=== PATIENT | female | born 1940 | race Caucasian/White ===

== ENCOUNTER 2019-04-26 07:26 | Inpatient (IN) ==
[2019-04-26 08:10] LABS: WBC 21.56 X1000 (4.8-10.8)
[2019-04-26 08:13] LABS: BASO# 0.04 X1000 (0.0-0.2); BASO% 0.2 % (0.0-0.8); EOS# 0.03 X1000 (0.0-0.7); EOS% 0.1 % (0.0-10.0); HEMATOCRIT 31.6 % (37.0-47.0); HEMOGLOBIN 9.5 g/dL (12.0-16.0); IMM GRAN# 0.05 X1000 (0.0-0.04); IMM GRAN% 0.2 % (0.0-0.5); LYMPH% 5.1 % (20.5-51.1); MCH 24.6 PG (27-31); MCHC 30.1 g/dL (33-37); MCV 81.9 FL (81-99); MONO# 1.63 X1000 (0.11-0.59); MONO% 7.6 % (1.7-9.3); MPV 11.1 FL (7.4-10.4); NEUT# 18.71 X1000 (1.4-6.5); NEUT% 86.8 % (42.2-75.2); PLT 422 X1000 (130-400); RBC 3.86 XMIL (4.2-5.4); RDW 13.2 % (11.5-14.5)
[2019-04-26 08:25] LABS: ALB/GLOB RATIO 1.8; ALBUMIN 4.6 g/dL (3.5-5.0); CALCIUM 10.3 mg/dL (8.8-10.2); CREATININE 1.4 mg/dL (0.5-0.9); POTASSIUM 4.8 mmol/L (3.5-5.1); TOTAL BILIRUBIN 0.37 mg/dL (0.20-1.00); TOTAL PROTEIN 7.2 g/dL (6.3-8.3)
--- NOTE | 2019-04-26 09:35 | PROVIDER DOCUMENTATION ---
HPI-Abdominal Pain/GI Problem - General Chief Complaint: Abdominal Pain Stated Complaint: ABD PAIN Time Seen by Provider: 04/26/19 08:58 Source: patient Allergies/Adverse Reactions: Patient Allergies Allergy/AdvReac Type Severity Reaction Status Date / Time aspirin Allergy Intermediate chest pain Verified 04/08/19 03:12 codeine [Codeine] Allergy Intermediate depression Verified 04/08/19 03:12 Penicillins Allergy Mild ITCHING Verified 04/08/19 03:12 baclofen Allergy Unknown Verified 04/08/19 03:12 meloxicam [From Mobic] Allergy Unknown Verified 04/08/19 03:12 tapentadol HCl * Allergy Unknown Verified 04/08/19 03:12 [From Nucynta] acetaminophen [From Lortab] AdvReac Intermediate Makes me Verified 04/08/19 03:12 feel weird Home Medications: Home Medication List Medication Instructions Recorded Confirmed Last Taken Type Furosemide [Lasix] 1 cap PO DAILY 06/09/17 04/08/19 06/21/17 09:00 History Potassium Chloride E.r. [Klor-Con] 1 cap PO DAILY 06/09/17 04/08/19 06/21/17 09:00 History Pravastatin Sodium 1 tab PO HS 06/09/17 04/08/19 1 Day Ago History ~06/08/17 Amlodipine Besylate/Benazepril 1 each PO DAILY 06/21/17 04/08/19 06/21/17 09:00 History [Amlodipine-Benazepril 5-40 mg] Cyclobenzaprine [Flexeril] 1 cap PO HS 06/21/17 04/08/19 06/20/17 22:00 History Fexofenadine [Kanika] 180 mg PO HS 06/21/17 04/08/19 06/20/17 22:00 History Multivitamin with Minerals 1 cap PO HS 06/21/17 04/08/19 06/20/17 22:00 History [Multiple Vitamin] Sertraline [Zoloft] 50 mg PO DAILY 06/21/17 04/08/19 06/21/17 09:00 History Sucralfate 1 cap PO BID 06/21/17 04/08/19 06/21/17 09:00 History Tramadol HCl [Ultram] 1 cap PO PRN PRN 06/21/17 04/08/19 Unknown History Clopidogrel [Plavix] 1 tab PO DAILY 04/08/19 04/08/19 04/07/19 History Hydrocortisone [Proctozone-Hc] 30 gm RC 4XDAY #1 cream..g. 04/08/19 Unknown Rx - History of Present Illness-ABD Nature of Presenting Problems: Patient is a 78 yowf who complains of LLQ pain that began early this morning. Also c/o constipation- states she has attempted to have a BM 3 times this morning and was unable to, saw bright red blood in the toilet after these attempts. Denies n/v/d, fever, or any other complaints. Review of Systems - Adult - REVIEW OF SYSTEMS - ADULT Constitutional: reports: no symptoms reported Eyes: reports: no symptoms reported Ears, Nose, Mouth & Throat: reports: no symptoms reported Cardiovascular: reports: no symptoms reported Respiratory: reports: no symptoms reported Gastrointestinal: reports: see HPI Genitourinary: reports: no symptoms reported Musculoskeletal: reports: no symptoms reported Integumentary: reports: no symptoms reported Neurological: reports: no symptoms reported Psychiatric: reports: no symptoms reported Endocrine: reports: no symptoms reported Hematologic/Lymphatic: reports: no symptoms reported Allergic/Immunologic: reports: no symptoms reported All Other Systems: Reviewed and Negative Past History - Adult - PAST MEDICAL HISTORY-ADULT Review of Records: reports: Old Records Reviewed, Nursing Assessment Review, Medications Reviewed, Social history reviewed & non-contributory. Major Childhood Illnesses: reports: denies history Cardiovascular: reports: HTN, hyperlipidemia, other (history of blood clots) Respiratory: reports: other (seasonal allergies) Gastrointestinal: reports: denies history Obstetrical/Gynecological: reports: denies history Genitourinary: reports: denies history Musculoskeletal: reports: arthritis, chronic pain, intervertebral disc disease Neurological: reports: TIA, other (vertigo) Psychiatric: reports: anxiety, depression Endocrine/Immune: reports: denies history Other Conditions: reports: denies history - PRIOR SURGERIES/PROCEDURES Surgical/Procedure History: reports: colonoscopy, hysterectomy, other (lumpectomy) - PRIOR HOSPITALIZATIONS Prior Hospitalizations: reports: for other non-related - IMMUNIZATION STATUS Childhood Immunizations: See Nurse Assessment Flu Vaccine: See Nurse Assessment - FAMILY HISTORY Family History: reviewed, not pertinent - SOCIAL HISTORY Smoking: non-smoker Physical Exam-General - PHYSICAL EXAM-ADULT Initial Vital Signs Reviewed: Yes - CONSTITUTIONAL General Appearance: alert, no apparent distress. negative: lethargic, slow to respond - EYES Eyes: PERRL/EOMI, pink conjunctivae - HEAD, EARS, NOSE, MOUTH & THROAT HENMT: normocephalic/atraumatic, moist mucous membranes - NECK Neck: full range of motion, supple, normal inspection - RESPIRATORY Respiratory: chest non-tender, lungs clear, normal breath sounds, no pleuratic chest pain, no respiratory distress, no accessory muscle use - CARDIOVASCULAR Cardiovascular: regular rate, rhythm, no gallop, no murmur - GASTROINTESTINAL (ABDOMEN) Abdominal Exam: normal bowel sounds, soft, tenderness (Diffuse- more in LLQ). negative: distended, guarding, rigid, rebound - MUSCULOSKELETAL Back Exam: normal inspection Extremity: normal range of motion, non-tender, normal inspection - SKIN Integumentary: normal color, warm/dry. negative: cyanosis, diaphoresis, ja undice, mottled, pallor - NEUROLOGIC Neurologic: grossly normal, no motor/sensory deficits - PSYCHIATRIC Psych/Mental Status: normal mood/affect, normal thought content, normal thought process, oriented x 3 Progress - PLAN OF CARE/RESULTS Progress/Plan/Lab Results: Vital Signs - 8 hr 04/26/19 07:34 Temperature 97.8 F Pulse Rate 78 Respiratory Rate 16 Blood Pressure 135/59 O2 Sat by Pulse Oximetry 98 Laboratory Results - last 24 hr 04/26/19 04/26/19 07:48 07:48 WBC 21.56 H RBC 3.86 L Hgb 9.5 L Hct 31.6 L MCV 81.9 MCH 24.6 L MCHC 30.1 L RDW Std Deviation 13.2 Plt Count 422 H MPV 11.1 H Immature Gran % (Auto) 0.2 Neut % (Auto) 86.8 H Lymph % (Auto) 5.1 L Yancey % (Auto) 7.6 Eos % (Auto) 0.1 Baso % (Auto) 0.2 Immature Gran # (Auto) 0.05 H Neut # (Auto) 18.71 H Lymph # (Auto) 1.10 L Yancey # (Auto) 1.63 H Eos # (Auto) 0.03 Baso # (Auto) 0.04 Sodium 138 Potassium 4.8 Chloride 101 Carbon Dioxide 20 L Anion Gap 17 BUN 38 H Creatinine 1.4 H Estimated GFR/1.73 m2 36 BUN/Creatinine Ratio 27 Glucose 152 H Calculated Osmolality 288 Calcium 10.3 H Total Bilirubin 0.37 AST 18 ALT 14 Alkaline Phosphatase 90 Total Protein 7.2 Albumin 4.6 Globulin 2.6 Albumin/Globulin Ratio 1.8 Amylase 152 Lipase 59 Orders Category Date Time Status Saline Loc DIRECTED Care 04/26/19 07:51 Active NPO Diet 04/26/19 07:51 Active AMYLASE [CHEM] Stat Lab 04/26/19 07:48 Completed CBC WITH ELECTRONIC DIFF [HEME] Stat Lab 04/26/19 07:48 Completed COMPREHENSIVE METABOLIC PANEL [CHEM] Stat Lab 04/26/19 07:48 Completed LIPASE [CHEM] Stat Lab 04/26/19 07:48 Completed URINALYSIS W/POSS RFLX CULT [URINALYSIS] Stat Lab 04/26/19 07:51 Uncollected Result Diagrams: 04/26/19 07:48 04/26/19 07:48 - REASSESSMENT Reassessment #1 Time Reassessed: 10:00 Status: other (CT scanner down, pt to be sent to [facility] to have CT scan.) Reassessment #2 Time Reassessed: 14:00 Status: other (Waiting on CT scan to dispo. Pain controlled at this time.) Reassessment #3 Time Reassessed: 17:44 Status: other (Admitting HPS paged.) Reassessment #4 Time Reassessed: 18:15 Status: other (Pain controlled. Pt in agreement with admission plan.) - CT/MRI 1 CT Study: Abdomen, Pelvis ([facility] - [address] [place] [address] [address] [address] [facility] - [address] [id number] Department of Imaging Patient: LUIS CHEN Date: 04/26/19MR#: [id number] : 1940DM [id number] Age/Sex: 78/FRoom/Bed: Loc: ED Ordering Physician: Janae King Family Physician: Michele Lyons MD Reason for Procedure: LLQ pain Signed EXAM: CT ABDOMEN/PELVIS W/O CONTRAST HISTORY: LLQ pain TECHNIQUE: CT abdomen and pelvis without oral or intravenous contrast COMPARISON: None. FINDINGS: There is a moderate to large hiatal hernia. No calcified gallstones or adjacent inflammation. No focal hepatic normality identified on this noncontrasted exam. No splenomegaly. There are scattered splenic granuloma. There is fatty infiltration of the pancreas. No peripancreatic inflammatory changes. Normal adrenal glands. No renal stones. No hydronephrosis. No aortic aneurysm. Prominent atherosclerosis. There is prominent stool in the proximal and mid colon. There is a small amount stool the more distal colon. There are scattered colonic diverticula. There is wall thickening to the descending colon and proximal sigmoid colon with mild adjacent inflammation. No abscess. Normal appendix. The urinary bladder is overly distended. The uterus has been removed. No pelvic mass. Mild scoliosis. There are degenerative spine changes. IMPRESSION: 1.Distal colitis 2.Constipation 3.Colonic diverticulosis 4.Atherosclerosis 5.Hysterectomy 6.Hiatal hernia This exam was performed using automated exposure control, adjustment of mA or kV according to patient size, and/or use of iterative reconstruction technique. Electronically signed by Silver Preciado 04/26/2019 5:36 PM 04/26/19 173 Interpreting Physician: Silver Preciado MD Dictated Date/Time: 04/26/19 173 cc: Janae King; Michele Lyons MD) - CONSULTS/PCP/HOSPITALIST Notification #1 *Consult/PCP/Hospitalist*: Dr. Garsia Time Discussed: 18:29 Reason/Comments: admission- colitis, abdominal pain Consult Disposition: Admit ( to place admit orders) Departure - Departure Date of Disposition Decision: 04/26/19 Time of Disposition Decision: 18:28 DIAGNOSIS: Colitis Abdominal pain Qualifiers: Abdominal location: left lower quadrant Qualified Code(s): R10.32 - Left lower quadrant pain Disposition: ADMITTED INPATIENT 09 Certified Medical Emergency: Emergent Condition: Stable Referrals and Follow-Ups: Michele Lyons MD [Primary Care Provider] - - Critical Care Note This patient required my direct & personal management of CC.: No Attestation - Physician/ SILVERIO Attestation Patient care was provided by Advanced Practice Provider:: Yes Advanced Practice Provider:: Janae King Advanced Practice Provider documentation review:: The Mid-level provider documentation, treatment plan and medical decision making was reviewed by the physician who agrees with all treatment and medical decision making by the MLP. The physician spent face to face time with patient:: No Advanced Practice Provider documentation review:: Supervising physician onsite and consulted in the evaluation and care of this patient. The physician did not have a face to face encounter with the patient.
[2019-04-26] MEDS ORDERED: MORPHINE IV ONE ×2 (09:41→13:22)
[2019-04-26] MEDS ORDERED: NS 1,000 ML IV ONE ×2 (09:41→19:39)
[2019-04-26] MEDS ORDERED: ZOFRAN IV ONE ×2 (09:41→13:22)
[2019-04-26 12:45] LABS: URINE SOURCE CLEAN CATCH
[2019-04-26 12:48] LABS: BILIRUBIN URINE NEGATIVE (NEGATIVE); BLOOD URINE NEGATIVE (NEGATIVE); COLOR YELLOW; GLUCOSE URINE NEGATIVE (NEGATIVE); KETONE URINE NEGATIVE (NEGATIVE); LEUKOCYTES URINE NEGATIVE (NEGATIVE); NITRITE URINE NEGATIVE (NEGATIVE); PROTEIN URINE NEGATIVE (NEGATIVE); SP GRAVITY URINE 1.016; TURBIDITY URINE CLEAR (CLEAR); UROBILINOGEN URINE NORMAL (NORMAL)
[2019-04-26] MEDS ORDERED: MORPHINE IM ONE (12:59)
[2019-04-26] MEDS ORDERED: ZOFRAN IM ONE (13:00)
[2019-04-26 13:06] LABS: UR EPITHELIAL CELLS <10 /HPF (<10); URINE BACTERIA NEGATIVE /HPF; URINE RBC <10 /HPF (<10); URINE WBC <10 /HPF (<10)
--- NOTE | 2019-04-26 17:38 | Diag Imaging Result Doc PS360 ---
EXAM: CT ABDOMEN/PELVIS W/O CONTRAST HISTORY: LLQ pain TECHNIQUE: CT abdomen and pelvis without oral or intravenous contrast COMPARISON: None. FINDINGS: There is a moderate to large hiatal hernia. No calcified gallstones or adjacent inflammation. No focal hepatic normality identified on this noncontrasted exam. No splenomegaly. There are scattered splenic granuloma. There is fatty infiltration of the pancreas. No peripancreatic inflammatory changes. Normal adrenal glands. No renal stones. No hydronephrosis. No aortic aneurysm. Prominent atherosclerosis. There is prominent stool in the proximal and mid colon. There is a small amount stool the more distal colon. There are scattered colonic diverticula. There is wall thickening to the descending colon and proximal sigmoid colon with mild adjacent inflammation. No abscess. Normal appendix. The urinary bladder is overly distended. The uterus has been removed. No pelvic mass. Mild scoliosis. There are degenerative spine changes. IMPRESSION: 1.Distal colitis 2.Constipation 3.Colonic diverticulosis 4.Atherosclerosis 5.Hysterectomy 6.Hiatal hernia This exam was performed using automated exposure control, adjustment of mA or kV according to patient size, and/or use of iterative reconstruction technique. Electronically signed by Silver Preciado 04/26/2019 5:36 PM
[2019-04-26] MEDS ORDERED: CIPRO 400 MG/D5W 400 MG/200 ML IVPB IV ONE (17:42)
[2019-04-26] MEDS ORDERED: MORPHINE IV PRN (19:39)
[2019-04-26] MEDS ORDERED: ZOFRAN IV PRN (19:39)
[2019-04-26] MEDS: FLAGYL 500 MG/NS 500 MG/100 ML IVPB IV SCH (20:00)
[2019-04-26] MEDS: CIPRO 400 MG/D5W 400 MG/200 ML IVPB IV SCH (21:24)
[2019-04-27 00:49] LABS: URINE SOURCE CLEAN CATCH
[2019-04-27 00:52] LABS: BILIRUBIN URINE NEGATIVE (NEGATIVE); BLOOD URINE SMALL (NEGATIVE); COLOR YELLOW; GLUCOSE URINE NEGATIVE (NEGATIVE); KETONE URINE NEGATIVE (NEGATIVE); LEUKOCYTES URINE NEGATIVE (NEGATIVE); NITRITE URINE NEGATIVE (NEGATIVE); PROTEIN URINE NEGATIVE (NEGATIVE); SP GRAVITY URINE 1.016; TURBIDITY URINE CLEAR (CLEAR); UROBILINOGEN URINE NORMAL (NORMAL)
[2019-04-27 00:54] LABS: UR EPITHELIAL CELLS <10 /HPF (<10); URINE BACTERIA NEGATIVE /HPF; URINE RBC 20-40 /HPF (<10); URINE WBC <10 /HPF (<10)
[2019-04-27 01:05] LABS: URINE CASTS NONE SEEN; URINE CRYSTALS NONE SEEN; URINE SMALL ROUND CELLS NONE SEEN; URINE YEAST NONE SEEN
--- NOTE | 2019-04-27 04:58 | HISTORY AND PHYSICAL ---
PRIMARY CARE PROVIDER: Michele Lyons MD. DATE AND TIME: 04/26/2019 at 2015. CHIEF COMPLAINT: Abdominal pain. HISTORY OF PRESENT ILLNESS: Ms Hoang is a 78-year-old female who presented to the ER this evening with complaints of abdominal pain that began earlier in the morning on 04/26/2019. She reports that it was in the left lower quadrant and did radiate to the mid lower quadrant. She stated the pain was crampy in nature. At home, nothing would really relieve it or make it worse. She denies any nausea, vomiting, or diarrhea, though states that she has been constipated. She has attempted to have a bowel movement 3 times this morning but was unable to do so. After attempting to have bowel movements, she reports that she saw bright red blood in the toilet. Though, she did not see bright red blood until after the attempts. The patient's daughter states that she has had this bright red blood in the past, Dr. Lyons was aware and they have been watching it. She denies any fever, body aches, or chills. She denies any past or present history of having diverticulitis or colitis. The patient does report some occasional dizziness, though does have a history of this and does take meclizine as needed. She also reports that she does have a occasional dry cough, states this has been present, this is not new. The patient does take a medication of benazepril. She denies any chest pain, though does state that she does have shortness of breath, this is not at rest. States he only has shortness of breath with exertion when she walks for long periods, for example, from her house to her mailbox and back. She states normally she ambulates with a walker/chair combination so she can sit and take rests. She states this has been ongoing, this is not acutely new. She does have chronic swelling of bilateral lower extremities, this is not worsened. Her family actually states that the swelling in her extremities looks better at this time. She denies any dysuria or urinary frequency. Upon evaluation in the ER, she was noted to have leukocytosis with a white blood cell count of 21,550. She is anemic with a hemoglobin of 9.5, hematocrit 31.6. She does have acute kidney disease. It does appear that she has a baseline creatinine of 1.1 to 1.3. Her renal function is just slightly above her baseline with a creatinine of 1.4 at this time. Urinalysis did not show any signs of infection. Given her abdominal pain, leukocytosis, they did perform a CT abdomen and pelvis, which did show distal colitis and constipation. She has been placed on antibiotics of ciprofloxacin and Flagyl. Since being given some pain medication in the ER, the patient is not reporting any pain at this time. She was resting comfortably in the ER stretcher. She was alert and oriented, and able to answer questions appropriately. She will be placed inpatient for admission. REVIEW OF SYSTEMS: A 14-point review of systems was conducted with the patient and all were negative, except for pertinent positives mentioned above in HPI. PAST MEDICAL HISTORY: 1. History of a cerebrovascular accident, for which she did have some transient left-sided weakness, though she states this has resolved. 2. History of basal cell skin cancer which was removed from her top lip. 3. Hypertension. 4. Chronic kidney disease. 5. Degenerative disk disease in her lower back. 6. Chronic back pain. 7. Arthritis. 8. Vertigo. 9. Anxiety. 10. Depression. 11. Chronic dizziness. 12. Chronic allergies. 13. Hyperlipidemia. 14. Chronic muscle aches. PAST SURGICAL HISTORY: 1. Basal cell skin cancer removed from her top lip. 2. Hysterectomy. 3. Left breast lumpectomy. 4. Bladder surgery. SOCIAL HISTORY: The patient is . She does live at home alone, though does have family close by that checks on her very regularly. She does use the ambulatory assistance of a walker/chair combination. There is no known history of tobacco, alcohol, or illicit drug use. FAMILY HISTORY: Positive for her mother having history of stroke. Her father had a history of heart disease. ALLERGIES: Patient has allergies to codeine, penicillins, baclofen, meloxicam, Nucynta, [place] and she is aspirin intolerant as well. HOME MEDICATIONS: 1. Norvasc 5 mg p.o. daily. 2. Benazepril 40 mg p.o. daily. 3. Plavix 75 mg p.o. daily. 4. Flexeril 10 mg p.o. at bedtime. 5. Voltaren 1% gel 1 application daily. 6. Lasix 40 mg capsule p.o. daily. 7. Prevacid 30 mg p.o. daily. 8. Antivert 12.5 mg p.o. as directed p.r.n. dizziness. 9. Multivitamin 1 capsule p.o. at bedtime. 10. Klor-Con 1 capsule p.o. daily. 11. Pravastatin 10 mg p.o. at bedtime. 12. Zoloft 50 mg p.o. daily. 13. Sucralfate 1 g p.o. b.i.d. DIAGNOSTIC DATA: White blood cell count is 21,560, hemoglobin 9.5, hematocrit 31.6, platelet count is 422,000. Sodium 138, potassium 4.8, chloride 101, serum bicarbonate is 20, BUN 38, creatinine 1.4 with a GFR of 36. Glucose 152, calcium 10.3. Liver function tests are within normal limits. Amylase 152, lipase 59. Urinalysis was obtained via clean catch, was negative for glucose, ketones, blood, nitrites, leukocytes, white blood cells, or bacteria. CT of the abdomen and pelvis showed distal colitis, constipation, colonic diverticulosis, atherosclerosis, hysterectomy, hiatal hernia. Please see full CT report for all detailed findings. PHYSICAL EXAMINATION: VITAL SIGNS: Temperature 98.4 degrees, heart rate 83, respirations 16, blood pressure is 114/60, oxygen saturation 91% on room air. The patient's oxygen saturation upon initial arrival to the ER was 98% on room air, though after receiving morphine, it did slightly did though, she has been placed on nasal cannula since and she is at 99% to 100%. This is likely secondary to the morphine administration. GENERAL: Ms. Urena is a very pleasant, 78-year-old female. She is resting in the ER stretcher, she was in no acute distress. She was alert and oriented, able to answer questions appropriately. HEENT: Head is atraumatic, normocephalic. Pupils are equal, round, reactive to light, were 3 mm bilaterally and brisk. Oral mucosa is moist. Oropharynx is clear. NECK: Supple. Trachea midline. CARDIOVASCULAR: Patient has S1, S2 present. No murmurs, gallops, rubs appreciated with a regular rate and rhythm. PULMONARY: Patient has symmetrical chest expansion bilaterally. Lung sounds clear to auscultation in bilateral full craig. ABDOMEN: Soft, does not appear to be distended though the patient has had a slightly protuberant abdomen noted. She was nontender upon palpation. Bowel sounds were present in all 4 quadrants. EXTREMITIES: No cyanosis noted. The patient does appear to have some swelling noted to bilateral lower extremities. There is only trace edema, though she is able to move all extremities. Radial pulses are 2+ bilaterally. Pedal pulses are 1+ bilaterally. Capillary refill is less than 3 seconds. INTEGUMENTARY: Patient's skin is pink, warm and dry. NEUROLOGICAL: The patient is alert and oriented to person, place, time and situation. She is able to move all extremities. There are no focal neurological deficits noted. ASSESSMENT AND PLAN: 1. Colitis. At this time, we placed the patient on a clear liquid diet. We have obtained blood cultures. We will place her on IV antibiotic coverage with Cipro and Flagyl. We are providing some gentle intravenous hydration as well. We also implemented the patient on a bowel regimen at this time, she had constipation noted on her CT. Given her reported recent rectal bleeding, I not going to perform any suppositories or enemas at this time, I will wait for Gastroenterology to evaluate her. I will go ahead and implement Colace and MiraLAX. We have placed a consult with Dr. Adrian with Gastroenterology. We will await their evaluation and further recommendations for management. 2. Leukocytosis. This is likely secondary to her colitis. The patient reports a dry nonproductive cough that she has had for a while, it is not of new onset. Otherwise, lung sounds were clear. Urinalysis did not show any signs of infection. She has not reported any fever, body aches, or chills. We will continue to monitor. 3. Acute on chronic kidney disease. The patient has had a very slight elevation in her creatinine, though we will continue to monitor this closely. We will avoid nephrotoxic medications and renally dose medicines as necessary. We are providing gentle intravenous hydration. 4. Constipation. We will continue with bowel regimen, as mentioned above, with Colace and MiraLAX. 5. Rectal bleeding and anemia. The patient reports that she has had this off and on and Dr. Lyons is aware and has been monitoring it. Though she did have an episode of this prior to arrival to the ER after trying to have some bowel movements. She is anemic with a hemoglobin of 9 and hematocrit of 31. We have ordered an anemia profile. We will await these results and continue to follow. Though she is hemodynamically stable. 6. Deep vein thrombosis prophylaxis provided with sequential compression devices. The patient has been placed on the medical floor with telemetry. She will have vital signs q.4 hours. We will do strict intake and output, incentive spirometry. Further orders and recommendations pending hospital course, diagnostic studies, and physician evaluation. Dictated by MIGUEL ANGEL Pang for Jared Thompson MD cc: Jared Thompson MD MTDD
[2019-04-27 07:06] LABS: BASO# 0.04 X1000 (0.0-0.2); BASO% 0.4 % (0.0-0.8); EOS# 0.14 X1000 (0.0-0.7); EOS% 1.5 % (0.0-10.0); HEMATOCRIT 26.1 % (37.0-47.0); HEMOGLOBIN 7.3 g/dL (12.0-16.0); IMM GRAN# 0.02 X1000 (0.0-0.04); IMM GRAN% 0.2 % (0.0-0.5); LYMPH# 1.99 X1000 (1.2-3.4); LYMPH% 21.4 % (20.5-51.1); MCH 23.7 PG (27-31); MCV 84.7 FL (81-99); MONO% 12.9 % (1.7-9.3); NEUT# 5.92 X1000 (1.4-6.5); NEUT% 63.6 % (42.2-75.2); PLT 310 X1000 (130-400); RBC 3.08 XMIL (4.2-5.4); RDW 13.2 % (11.5-14.5); WBC 9.31 X1000 (4.8-10.8)
[2019-04-27 07:16] LABS: INR 1.2; PROTIME 15.4 Seconds (11.0-16.0); PTT 33.8 Seconds (22.3-41.8)
[2019-04-27 07:24] LABS: ALB/GLOB RATIO 2.1; ALBUMIN 3.6 g/dL (3.5-5.0); CALCIUM 9.2 mg/dL (8.8-10.2); CREATININE 1.1 mg/dL (0.5-0.9); MAGNESIUM 2.6 mg/dL (1.5-2.7); POTASSIUM 4.2 mmol/L (3.5-5.1); TOTAL BILIRUBIN 0.29 mg/dL (0.20-1.00); TOTAL PROTEIN 5.3 g/dL (6.3-8.3)
[2019-04-27 07:27] LABS: ANISOCYTOSIS 1+; EOS 2 % (1-10); HYPOCHROM 2+; LYMPHS 11 % (21-51); MONO 4 % (1-9); SEGS 83 % (42-75)
[2019-04-27 07:41] LABS: FERRITIN 10 ng/mL (13-150)
[2019-04-27] MEDS: COLACE PO SCH ×2 (07:59→23:20)
[2019-04-27] MEDS: CIPRO 400 MG/D5W 400 MG/200 ML IVPB IV SCH (08:03)
[2019-04-27] MEDS ORDERED: MIRALAX PO SCH (09:00)
[2019-04-27] MEDS: FLAGYL 500 MG/NS 500 MG/100 ML IVPB IV SCH ×2 (10:54→23:18)
--- NOTE | 2019-04-27 12:44 | PROGRESS NOTE ---
DATE: 04/27/2019 SUBJECTIVE: The patient resting comfortably in bed. Not in any obvious distress. OBJECTIVE: Vital signs: Temperature is 98.4 degrees, pulse 71, respiratory rate 16, blood pressure 123/42, oxygen saturation is 93%. HEENT: Atraumatic, normocephalic. Cardiovascular system: S1, S2. Respiratory system: Has evidence of good air entry bilaterally. Abdomen: Soft, nontender. No masses felt. Extremities: No evidence of edema. Central nervous system: No obvious focal deficit noted. LABORATORY DATA: WBC is 9.31, hematocrit is 26.1 with a platelet count of 310,000. Sodium is 144, potassium 4.2, chloride is 111, bicarb is 22, BUN 19, creatinine is 1.1. ASSESSMENT AND PLAN: 1. Acute colitis. Maintain patient on clear liquids. Continue antibiotics. The patient is current on Cipro as well as Flagyl. We will consult with the GI team. The patient also has rectal bleed. 2. Acute kidney injury. Renal function improving on IV hydration. Continue to follow up on renal function. Avoid nephrotoxic agents. 3. Anemia. Check iron studies including B12 and folate level. Follow up on hemoglobin and hematocrit and transfuse packed red blood cells as needed. 4. Deep vein thrombosis prophylaxis. SCD. cc: Cole Alexis MD
--- NOTE | 2019-04-27 13:27 | GASTROENTEROLOGY CONSULTATION ---
DATE: 04/27/2019 REASON FOR CONSULTATION: GI bleed. HISTORY OF PRESENT ILLNESS: Ms. Urena is a 78-year-old female who presented to the ER yesterday with abdominal pain in the lower quadrant and radiating the upper quadrant, she also reported noticing blood in her stools. She described her stomach pain as crampy and aching. On a scale of 1 to 10, she rated it as 10/10. The patient has denied any nausea or vomiting, but she did mention that she had a little diarrhea. She mentioned having occasional constipation. Her daughter was at the bedside, and she said that a month back she had gone to [facility] with the same problem. The daughter said that they had done a bunch of tests, and they did not find anything specific. The daughter also mentioned that the patient has got hemorrhoids and that she is on Plavix. She has a history of stroke, and does have some left-sided weakness which is getting better. The patient has denied any other symptoms of fever, chills, or shortness of breath. She does have edema in her lower extremities and patient mentioned that she has cellulitis and gets blisters on her lower extremities. On admission, the abdomen and pelvis CT had shown that she has distal colitis, constipation, colon diverticulosis, arthrosclerosis, hysterectomy, and hiatal hernia. PAST MEDICAL HISTORY: CVA, history of basal cell skin cancer which was remote on the top of her lip, hypertension, chronic kidney disease, degenerative disk disease in the lower back area, chronic pain, arthritis, vertigo, anxiety, depression, cellulitis, dizziness, hypertension, and chronic muscle aches. PAST SURGICAL HISTORY: Basal cell skin cancer removed from the top of the lip, hysterectomy, left breast lumpectomy, and bladder surgery. SOCIAL HISTORY: The patient is a . She lives alone. She uses a walker and a wheelchair for ambulating. Denies any tobacco, alcohol, or illicit drug use. ALLERGIES: To codeine, penicillin, baclofen, meloxicam, Nucyn[place], [place], and aspirin. FAMILY HISTORY: Positive for stroke and heart disease. MEDICATIONS: 1. Lasix 40 mg daily. 2. Potassium chloride 1 capsule daily. 3. Pravastatin 10 mg at bedtime. 4. Flexeril 10 mg at bedtime. 5. Multivitamin 1 capsule at bedtime. 6. Tramadol 50 mg p.r.n. 7. Zoloft 50 mg daily. 8. Carafate 1 g p.o. twice a day. 9. Plavix 75 mg daily. 10. Amlodipine 5 mg daily. 11. Benazepril 40 mg daily. 12. Lansoprazole 30 mg p.o. daily. 13. Meclizine 12.5 mg as needed. 14. Diclofenac 1 application daily. REVIEW OF SYSTEMS: As per HPI. Otherwise, 12 point review of system is negative. PHYSICAL EXAMINATION: Vital Signs: Temperature 98.4 degrees, pulse 71, respirations 16, blood pressure 123/42, oxygen saturation is 93% on 3 L nasal cannula. The patient's weight is 141 pounds. BMI is 25.8 kg/m2. General: She is alert and oriented x3, and in no acute distress. HEENT: Pale conjunctivae. No icterus. PERRL. Neck: Supple. Lungs: Clear to auscultation in the anterior craig. Cardiovascular: Regular rate and rhythm. Abdomen: Soft. Mildly distended. Nontender. Active bowel sounds heard in all 4 quadrants. Extremities: No clubbing. No cyanosis. Generalized edema noted in the lower extremities. Pedal pulses 1+ present bilaterally. Neurologic: She is alert and oriented x3. Nonfocal. Cranial nerves 2-12 grossly intact. LABORATORY DATA: WBCs are 9.31, RBCs 3.08, hemoglobin is 7.3, hematocrit is 26.1, and platelet count is 310,000. Sodium 144, potassium 4.2, chloride 111, carbon dioxide 22, anion gap 11, BUN 19, creatinine is 1.1, glucose 94, calcium 9.2, and magnesium 2.6. Iron 20, TIBC 351, ferritin 10, total bilirubin 0.29, AST 14, ALT 11, and alkaline phos 63. Albumin is 3.6, vitamin B12 864, folate is 26.9. Urinalysis has shown small amount of blood in the urine. The patient's abdomen and pelvis CT has shown she has got distal colitis, constipation, colonic diverticulosis, arthrosclerosis, hysterectomy, and hiatal hernia. IMPRESSION AND PLAN: Colitis Constipation Rectal bleeding Anemia Kidney disease Abdominal pain Leukocytosis h/o Hemorrhoids PLAN: Ms. Urena is a 78 year old female with the history of CVA, basal cell skin cancer and chronic kidney disease, GI has been consulted for her rectal bleeding. The patient is on antibiotics, Flagyl and Cipro. She is on GI prophylaxis Protonix 40 mg daily. For her constipation, she is on Colace and MiraLAX. The patient's hemoglobin today is 7.3 and 26.1. We will continue to monitor her CBCs. We plan to do a colonoscopy tomorrow with Dr Adrian to find out the cause of her bleeding. Discussed the risks, benefits and alternatives of the procedure to patient and family, they acknowledge understanding of the plan of care. Further plan of care will be based on the colonoscopy findings. This plan was discussed with Dr. Hernández. Thank you for your consult. Please call us for any further questions or concerns. Dictated by MIGUEL ANGEL Hannon for Venu Hernández MD cc: Venu Hernández MD I have seen and examined the patient myself and I agree with the above plan of care. I have discussed the above with the patient and all questions were answered. Please call us with any further questions. PURNIMA
[2019-04-27] MEDS ORDERED: GOLYTELY PO ONE (14:00)
[2019-04-27] MEDS: CENTRUM SILVER PO SCH (23:19)
[2019-04-27] MEDS: MIRALAX PO SCH (23:20)
[2019-04-28] MEDS: CIPRO 400 MG/D5W 400 MG/200 ML IVPB IV SCH ×2 (00:34→12:22)
[2019-04-28] MEDS: PROTONIX IV SCH ×2 (02:53→05:28)
[2019-04-28] MEDS: SODIUM CHLORIDE 0.9% INJ SCH (02:53)
[2019-04-28] MEDS: FLAGYL 500 MG/NS 500 MG/100 ML IVPB IV SCH ×3 (06:16→23:11)
[2019-04-28 07:06] LABS: IRON SATURATION 4 %; TIBC 332 ug/dL; TOTAL IRON 12 ug/dL (49-151); UNBOUND IRON 320 ug/dL (112-346)
[2019-04-28 07:14] LABS: FERRITIN 10 ng/mL (13-150)
[2019-04-28 09:02] LABS: AGAP 11; BUN 11 mg/dL (8-22); CALCIUM 9.5 mg/dL (8.8-10.2); CHLORIDE 107 mmol/L (98-107); COSMO 284; CREATININE 0.9 mg/dL (0.5-0.9); ESTIMATED GFR > 60; GLUCOSE 90 mg/dL (70-104); POTASSIUM 4.1 mmol/L (3.5-5.1); SODIUM 143 mmol/L (136-145); TCO2 25 mmol/L (25-35)
[2019-04-28 09:10] LABS: BASO# 0.05 X1000 (0.0-0.2); BASO% 0.6 % (0.0-0.8); EOS# 0.21 X1000 (0.0-0.7); EOS% 2.6 % (0.0-10.0); HEMATOCRIT 22.9 % (37.0-47.0); HEMOGLOBIN 6.5 g/dL (12.0-16.0); LYMPH# 1.65 X1000 (1.2-3.4); LYMPH% 20.1 % (20.5-51.1); MCH 24.1 PG (27-31); MCHC 28.4 g/dL (33-37); MCV 84.8 FL (81-99); MONO# 1.12 X1000 (0.11-0.59); MONO% 13.7 % (1.7-9.3); MPV 11.3 FL (7.4-10.4); NEUT# 5.17 X1000 (1.4-6.5); PLT 270 X1000 (130-400)
[2019-04-28] MEDS ORDERED: DIPRIVAN 1% ONE ×2 (09:31→10:20)
[2019-04-28] MEDS: MIRALAX PO SCH (09:53)
[2019-04-28] MEDS: COLACE PO SCH ×2 (09:53→21:00)
--- NOTE | 2019-04-28 10:40 | ENDOSCOPY OPERATIVE NOTE ---
[facility] ENDOSCOPY OPERATIVE NOTE , COLONOSCOPY PROCEDURE REPORT EXAM DATE: 04/28/2019 PATIENT NAME: Lelia Urena MR #: [id number] BIRTHDATE: 1940 ENDOSCOPIST: Devin Adrian MD STATUS: inpatient ONSITE CASE MANAGER: INDICATIONS: The patient is a 78 yr old female here for a colonoscopy due to hematochezia. PROCEDURE PERFORMED: Colonoscopy, diagnostic MEDICATIONS: Per Anesthesia PREP TYPE: GoLytely
[2019-04-28] MEDS ORDERED: MIRALAX PO PRN (11:10)
[2019-04-28] MEDS ORDERED: NS 500 ML IV SCH (13:00)
--- NOTE | 2019-04-28 15:42 | Diag Imaging Result Doc PS360 ---
EXAM: CHEST-PORTABLE 04/28/2019 HISTORY: cough, left base rales TECHNIQUE: AP portable upright at 1533 COMMENT: There is ill-defined opacity in the lingula and left lower lobe. This was not the case on 01/30/2015. IMPRESSION: Lingular and left lower lobe pneumonia. Advise follow-up until clear. Electronically signed by Franky Perez 04/28/2019 3:40 PM
[2019-04-28] MEDS ORDERED: TYLENOL PO PRN (18:03)
[2019-04-28] MEDS: TYLENOL PO PRN (18:15)
--- NOTE | 2019-04-28 18:38 | PROGRESS NOTE ---
DATE: 04/28/2019 INTERVAL HISTORY: The patient is status post colonoscopy this morning showing only hemorrhoids. No further hematochezia but has had continued drop in blood counts. The patient complaining only of some mild fatigue and being cold. Also complained of a little bit of increased cough, although no dyspnea. REVIEW OF SYSTEMS: Twelve point review of systems negative except as per interval history. LABORATORY DATA: WBC 8.2, hemoglobin 6.5, hematocrit 22.9, platelets 270,000. Sodium 143, potassium 4.1, BUN 11, creatinine 0.9. Iron 12, TIBC 3032, ferritin 10. VITAL SIGNS: T-max 98.5 degrees, pulse 102, blood pressure 98/45, O2 saturation 92% on 2 L by nasal cannula. IMAGING: Chest x-ray with lingular left lower lobe pneumonia. PHYSICAL EXAMINATION: General: No acute distress. Vitals: As above. HEENT: Normocephalic, atraumatic. Moist mucous membranes. Cardiovascular: Slightly tachycardic but regular. No murmurs noted. Pulmonary: Some left base rales, otherwise clear to auscultation bilaterally. Abdomen: Soft, nontender, nondistended. Bowel sounds positive. Extremities: Peripheral pulses intact. No clubbing or cyanosis. Neurologic: Cranial nerves grossly intact. No focal deficits. Psychiatric: Normal mood and affect. Awake, alert, oriented x3. Skin: Some pallor noted. No new rashes. ASSESSMENT AND PLAN: 1. Acute colitis, hematochezia. The patient with no further hematochezia or diarrhea today. Status post colonoscopy this morning showing only hemorrhoids which is likely the source for bleeding. Blood counts still trending down this morning, though. Patient getting 1 unit of blood, which I believe they have had trouble finding a match for so that is pending. The patient is relatively asymptomatic with her anemia other than being cold. No chest pain or chest pain. Denies dyspnea or dizziness. On Flagyl and Cipro initially. Continuing Flagyl. We are changing other antibiotics to Rocephin and azithromycin as below. 2. Pneumonia. Today, patient with complaint of increased cough. Does have some rales on exam. Chest x-ray obtained which does show lingular and left lower lobe pneumonia. Onset of symptoms within 48 hours of admission, so likely community-acquired. Antibiotics with Rocephin and azithromycin started. Obtaining blood cultures. Monitor closely. Low threshold to change to broader spectrum antibiotics if the patient does not improve fairly rapidly. 3. Hypertension, patient hypertensive by history but blood pressure low normal so far in this hospitalization. Holding home Norvasc and benazepril. The patient does report some chronic cough with benazepril, so may change to ARB on discharge. 4. Hyperlipidemia. Continue on statin. 5. Acute kidney injury. The patient's creatinine 1.4 on admission down to 0.9 today. Continue to monitor.
[2019-04-28] MEDS: ROCEPHIN 1 GM in NS 50 ML IV SCH (20:59)
[2019-04-28] MEDS: CENTRUM SILVER PO SCH (21:00)
[2019-04-28] MEDS: PERIDEX MT SCH (21:01)
[2019-04-28] MEDS: ANUSOL-HC SUPP PR SCH (21:01)
[2019-04-28] MEDS: ZITHROMAX 500 MG/NS 500 MG/250 ML IVPB IV SCH (22:00)
[2019-04-29 01:35] LABS: HEMATOCRIT 28.1 % (37.0-47.0); HEMOGLOBIN 8.3 g/dL (12.0-16.0)
[2019-04-29] MEDS: PROTONIX IV SCH (02:13)
[2019-04-29] MEDS: SODIUM CHLORIDE 0.9% INJ SCH (02:14)
[2019-04-29] MEDS: FLAGYL 500 MG/NS 500 MG/100 ML IVPB IV SCH ×3 (05:22→22:05)
[2019-04-29] MEDS: TESSALON PO PRN ×3 (05:26→21:01)
--- NOTE | 2019-04-29 07:11 | Diag Imaging Result Doc PS360 ---
EXAM: CHEST-PORTABLE 04/29/2019 HISTORY: dyspnea TECHNIQUE: AP portable at 0604 COMMENT: There is interstitial opacity throughout both lungs with denser alveolar opacification in the left perihilar region including the lingula and lower lobe. The interstitial pulmonary edema has worsened since 04/28/2019 otherwise are has been no significant change. IMPRESSION: Pulmonary edema. Left lower lobe and lingular pneumonia. Electronically signed by Franky Perez 04/29/2019 7:09 AM
[2019-04-29 07:18] LABS: BASO# 0.03 X1000 (0.0-0.2); BASO% 0.2 % (0.0-0.8); EOS# 0.04 X1000 (0.0-0.7); EOS% 0.3 % (0.0-10.0); HEMATOCRIT 28.9 % (37.0-47.0); HEMOGLOBIN 8.4 g/dL (12.0-16.0); IMM GRAN# 0.03 X1000 (0.0-0.04); IMM GRAN% 0.2 % (0.0-0.5); LYMPH# 1.25 X1000 (1.2-3.4); LYMPH% 8.9 % (20.5-51.1); MCH 24.2 PG (27-31); MCHC 29.1 g/dL (33-37); MCV 83.3 FL (81-99); MONO# 1.39 X1000 (0.11-0.59); MONO% 9.9 % (1.7-9.3); MPV 11.2 FL (7.4-10.4); NEUT# 11.37 X1000 (1.4-6.5); NEUT% 80.5 % (42.2-75.2); PLT 278 X1000 (130-400); RBC 3.47 XMIL (4.2-5.4); RDW 13.8 % (11.5-14.5); WBC 14.11 X1000 (4.8-10.8)
[2019-04-29 07:36] LABS: CALCIUM 9.1 mg/dL (8.8-10.2); CREATININE 1.1 mg/dL (0.5-0.9); POTASSIUM 4.3 mmol/L (3.5-5.1)
[2019-04-29] MEDS: COLACE PO SCH ×2 (09:13→20:07)
[2019-04-29] MEDS: ANUSOL-HC SUPP PR SCH ×2 (09:13→20:08)
[2019-04-29] MEDS: PERIDEX MT SCH ×2 (09:13→20:07)
[2019-04-29] MEDS ORDERED: LASIX IV ONE (09:36)
[2019-04-29] MEDS: ZOLOFT PO SCH (10:21)
--- NOTE | 2019-04-29 17:28 | PROGRESS NOTE ---
DATE: 04/29/2019 SUBJECTIVE: This patient states that she is feeling better, but she does have generalized weakness. She has been coughing, but her cough is dry. X-ray today showed pulmonary edema and pneumonia on the left side. She has been placed on antibiotics. She also had an endoscopy done that did not show any source of infection, but some nonbleeding diverticulosis in the sigmoid colon, small internal hemorrhoids and external hemorrhoids. Hemorrhoids are likely the source of rectal bleeding. There was no blood in the colon or rectum. They have recommended a high-fiber diet, MiraLAX once a day to avoid constipation, Anusol HC suppositories twice a day for 2 weeks. She received 1 unit of PRBC because her hemoglobin dropped to 6.5, now is 8.4, and we will monitor. OBJECTIVE: Vital Signs: Temperature 98 degrees, pulse 99, respiratory rate 20, blood pressure 135/55, oxygen saturation 94% on 2 L of nasal cannula. HEENT: Head normocephalic, no trauma. PERRLA. Neck: Supple. No JVD. No masses. Central trachea. Chest: Clear to auscultation. Some crepitus at the bases with mild rales, left lower lobe rhonchi. Abdomen: Soft, nontender, nondistended. No hepatosplenomegaly. Extremities: No edema, no clubbing, no cyanosis. Neurological: The patient is awake and alert. She is oriented x3. No focal deficits. LABORATORY: WBC 14.1, hemoglobin 8.4, hematocrit 24.9, platelets 278,000. Sodium 141, potassium 4.3, chloride 108, bicarbonate 19, BUN 11, creatinine 1.1, glucose 105, calcium 9.1. ASSESSMENT AND PLAN: 1. Acute colitis/hematochezia. This patient is not having more hematochezia. No diarrhea, actually no bowel movements after colonoscopy. The colonoscopy showed hemorrhoids and some mild diverticulosis with no diverticulitis. The patient received 1 unit of blood. The hemorrhoids are likely the cause of the bleeding. Continue with Flagyl. 2. Pneumonia, left lower lobe. She is still coughing, but nothing is coming up. X-ray showed lingular and left lower lobe pneumonia, as well as some effusion. I will give her a dose of Lasix, and I will continue with ceftriaxone and azithromycin. 3. Hypertension. Her blood pressure has been stable. Yesterday, she had a couple of episodes of low blood pressure. I will still keep on hold the Norvasc and benazepril. 4. Hyperlipidemia. Continue with statins. 5. Acute kidney injury on chronic kidney disease. Resolved. 6. Generalized weakness and physical deconditioning. I have requested Physical Therapy to evaluate this patient. cc: Jorge Daniels MD
[2019-04-29] MEDS: ROCEPHIN 1 GM in NS 50 ML IV SCH (20:06)
[2019-04-29] MEDS: CENTRUM SILVER PO SCH (20:07)
[2019-04-29] MEDS: ZITHROMAX 500 MG/NS 500 MG/250 ML IVPB IV SCH (20:56)
[2019-04-30] MEDS: PROTONIX IV SCH (01:38)
[2019-04-30] MEDS: SODIUM CHLORIDE 0.9% INJ SCH (01:38)
[2019-04-30] MEDS: TESSALON PO PRN ×3 (04:20→20:39)
[2019-04-30] MEDS: FLAGYL 500 MG/NS 500 MG/100 ML IVPB IV SCH ×4 (05:37→23:18)
[2019-04-30 07:10] LABS: BASO# 0.03 X1000 (0.0-0.2); BASO% 0.2 % (0.0-0.8); EOS# 0.07 X1000 (0.0-0.7); EOS% 0.5 % (0.0-10.0); HEMATOCRIT 27.6 % (37.0-47.0); HEMOGLOBIN 8.2 g/dL (12.0-16.0); IMM GRAN# 0.09 X1000 (0.0-0.04); IMM GRAN% 0.6 % (0.0-0.5); LYMPH# 1.66 X1000 (1.2-3.4); LYMPH% 11.2 % (20.5-51.1); MCHC 29.7 g/dL (33-37); MCV 80.9 FL (81-99); MONO# 2.19 X1000 (0.11-0.59); MONO% 14.8 % (1.7-9.3); MPV 10.8 FL (7.4-10.4); NEUT# 10.76 X1000 (1.4-6.5); NEUT% 72.7 % (42.2-75.2); PLT 263 X1000 (130-400); RBC 3.41 XMIL (4.2-5.4); RDW 13.5 % (11.5-14.5)
[2019-04-30] MEDS: TYLENOL PO PRN (07:49)
[2019-04-30] MEDS: ZOLOFT PO SCH ×2 (07:49→13:30)
[2019-04-30 08:14] LABS: CALCIUM 9.4 mg/dL (8.8-10.2); POTASSIUM 3.3 mmol/L (3.5-5.1)
[2019-04-30] MEDS: PERIDEX MT SCH ×2 (09:25→20:39)
[2019-04-30] MEDS: PLAVIX PO SCH (09:25)
[2019-04-30] MEDS: LASIX PO SCH (09:25)
[2019-04-30] MEDS: COLACE PO SCH ×2 (09:25→20:39)
[2019-04-30] MEDS: ANUSOL-HC SUPP PR SCH (09:25)
[2019-04-30] MEDS: ANTIVERT PO PRN ×2 (09:27→20:41)
[2019-04-30] MEDS ORDERED: KLOR-CON PO ONE (14:17)
[2019-04-30] MEDS ORDERED: LASIX IV ONE (15:49)
--- NOTE | 2019-04-30 16:09 | PROGRESS NOTE ---
DATE: 04/30/2019 SUBJECTIVE: As per the patient, she does have generalized weakness and shortness of breath. X- ray showed left lower lobe pneumonia and lingular pneumonia as well, pulmonary edema. She has been getting Lasix and I will give her an extra dose today since she has bilateral crackles. Also I suspect this patient has CHF, so I will order an echocardiogram tomorrow to see how she does. I do not have any echocardiogram reported here. OBJECTIVE: Vital Signs: Temperature 98.4 degrees, pulse 82, respiratory rate 16, blood pressure 127/65, oxygen saturation 93 on 3 L of nasal cannula. HEENT: Head normocephalic. No trauma. PERRLA. Neck: Supple. No JVD. No masses. Central trachea. Chest: Clear to auscultation. Some crepitus at the bases with mild rales. Left lower lobe rhonchi. Abdomen: Soft, nontender, nondistended. No hepatosplenomegaly. Extremities: No edema. No clubbing. No cyanosis. Neurological: The patient is awake and alert. She is oriented x3. No focal deficits. LABORATORY: WBC 14.8, hemoglobin 8.2, hematocrit 27.6, platelet 263,000. Sodium 140, potassium 3.3, chloride 104, bicarbonate 23, BUN 13, creatinine 1, glucose 106, calcium 9.4. ASSESSMENT AND PLAN: 1. Acute colitis/hematochezia. This patient has not been reporting more hematochezia. Actually, no more diarrhea. I will continue with same management. Colonoscopy showed hemorrhoids and some mild diverticulosis with no diverticulitis. The patient received 1 unit of blood. The hemorrhoids are likely the cause of the bleeding. Continue with Flagyl. 2. Pneumonia, left lower lobe and lingula. She is still coughing but nothing is coming up. X- ray showed lingular and left lower lobe pneumonia, as well as some pleural effusion. I gave her a dose of Lasix and I will continue with ceftriaxone and azithromycin. 3. Fluid overload, I suspect this patient has congestive heart failure. I do not have any echocardiogram to corroborate this information. I will ask for one. 4. Hypertension. Her blood pressure has been stable. Two days ago she had a couple episodes of low blood pressure, but it has been more stable. 5. Hyperlipidemia. Continue with statins. 6. Acute kidney injury on chronic kidney disease, resolved. 7. Generalized weakness and physical deconditioning. Physical therapy on board. I will follow their recommendations. 8. She is not on home O2. Pending echocardiogram for tomorrow. cc: Jorge Daniels MD
[2019-04-30] MEDS: ROCEPHIN 1 GM in NS 50 ML IV SCH (20:38)
[2019-04-30] MEDS: ZITHROMAX 500 MG/NS 500 MG/250 ML IVPB IV SCH (20:39)
[2019-04-30] MEDS: CENTRUM SILVER PO SCH (20:39)
[2019-04-30] MEDS ORDERED: NS 500 ML ONE (20:45)
[2019-05-01] MEDS: ANUSOL-HC SUPP PR SCH ×3 (04:23→20:36)
[2019-05-01] MEDS: PROTONIX IV SCH (05:54)
[2019-05-01] MEDS: SODIUM CHLORIDE 0.9% INJ SCH (05:54)
[2019-05-01] MEDS: ZOLOFT PO SCH ×2 (06:00→09:45)
--- NOTE | 2019-05-01 07:35 | Diag Imaging Result Doc PS360 ---
EXAM: CHEST-PORTABLE HISTORY: dyspnea TECHNIQUE: Single view COMPARISON: 04/29/2019 FINDINGS: Poor inspiratory effort. There is pulmonary edema with increased interstitial markings throughout both lungs. There is also basilar atelectasis. Considering the differences in technique and rotation, the markings are quite similar to that of the prior exam. Small left pleural effusion. IMPRESSION: No significant interval change. Electronically signed by Silver Preciado 05/01/2019 7:33 AM
[2019-05-01 07:41] LABS: BASO# 0.03 X1000 (0.0-0.2); BASO% 0.2 % (0.0-0.8); EOS# 0.09 X1000 (0.0-0.7); EOS% 0.7 % (0.0-10.0); HEMATOCRIT 29.2 % (37.0-47.0); HEMOGLOBIN 8.6 g/dL (12.0-16.0); IMM GRAN# 0.09 X1000 (0.0-0.04); IMM GRAN% 0.7 % (0.0-0.5); LYMPH# 1.39 X1000 (1.2-3.4); MCH 23.8 PG (27-31); MCHC 29.5 g/dL (33-37); MCV 80.7 FL (81-99); MONO# 1.81 X1000 (0.11-0.59); MONO% 14.3 % (1.7-9.3); MPV 11.1 FL (7.4-10.4); NEUT# 9.21 X1000 (1.4-6.5); NEUT% 73.1 % (42.2-75.2); PLT 283 X1000 (130-400); RBC 3.62 XMIL (4.2-5.4); RDW 13.7 % (11.5-14.5); WBC 12.62 X1000 (4.8-10.8)
[2019-05-01 07:56] LABS: AGAP 12; BUN 13 mg/dL (8-22); CALCIUM 9.2 mg/dL (8.8-10.2); CHLORIDE 101 mmol/L (98-107); COSMO 277; CREATININE 0.9 mg/dL (0.5-0.9); ESTIMATED GFR > 60; GLUCOSE 94 mg/dL (70-104); POTASSIUM 3.3 mmol/L (3.5-5.1); SODIUM 139 mmol/L (136-145); TCO2 26 mmol/L (25-35)
[2019-05-01] MEDS: FLAGYL 500 MG/NS 500 MG/100 ML IVPB IV SCH (09:44)
[2019-05-01] MEDS: PERIDEX MT SCH ×2 (09:45→20:35)
[2019-05-01] MEDS: LASIX PO SCH (09:45)
[2019-05-01] MEDS: PLAVIX PO SCH (09:45)
[2019-05-01] MEDS: COLACE PO SCH ×2 (09:45→20:35)
[2019-05-01] MEDS: ANTIVERT PO PRN (09:49)
[2019-05-01] MEDS ORDERED: KLOR-CON PO ONE (09:54)
--- NOTE | 2019-05-01 12:37 | GASTROENTEROLOGY PROGRESS NOTE ---
DATE: 04/30/2019 SUBJECTIVE: Ms. Urena is a 78-year-old, female sitting in bed, having her breakfast. Family at the bedside. The patient has denied any nausea, vomiting, or abdominal pain, and she has denied noticing any bleeding episodes. OBJECTIVE: Vital Signs: Temperature 98.2 degrees, pulse is 82, respirations 14, blood pressure 151/61, oxygen saturation 94% on 3 L nasal cannula. The patient's weight is 141 pounds, BMI is 25.8 kg/m2. General: She is alert and oriented x3, and in no acute distress. HEENT: Pale conjunctivae. No icterus. PERRL. Neck: Supple. Lungs: Clear to auscultation in the anterior craig. Cardiovascular: Regular rate and rhythm. Abdomen: Soft, nontender, nondistended. Active bowel sounds heard in all 4 quadrants. Extremities: No clubbing, no cyanosis. Generalized edema in the lower extremities. Pedal pulses 1+ present bilaterally. Neurologic: She is alert and oriented x3. IMAGING AND LABORATORY DATA: WBCs are 12.62, RBC 3.62, hemoglobin is 8.6, hematocrit 29.2, platelet count is 283,000. Sodium 139, potassium 3.3, chloride 101, carbon dioxide 26, anion gap 12, BUN 13, creatinine 0.9, glucose 94, calcium 9.2. Chest x-ray today showed no significant interval change. IMPRESSION AND PLAN: Colitis on imaging. Diverticulosis Hemorrhoids Rectal bleeding Anemia Constipation PLAN: Ms. Urena is a 78-year-old, female with a history of CVA, basal cell skin cancer, and chronic kidney disease. GI is following her for her rectal bleeding. Colonoscopy was done on 04/28/2018, she had mild nonbleeding diverticulosis in the sigmoid colon, small internal hemorrhoids, external hemorrhoids. The cause of her bleeding is likely due to the hemorrhoids. The patient has so far received 1 unit of packed red blood cells. She is currently on GI prophylaxis, Protonix 40 mg IV daily. The patient is on a bowel regimen, MiraLAX 17 grams twice a day as needed, and Colace 100 mg p.o. twice a day. The patient is on antibiotics, Rocephin and Zithromax. She is also receiving Anusol hydrocortisone suppository cream 25 mg twice a day for hemorrhoids. We have discussed with the patient to consume a high- fiber diet, and avoid nuts, corns, and seeds, and to continue with MiraLAX twice a day to avoid constipation. The patient acknowledges understanding of the plan of care. We will continue to monitor the patient, and follow the plan of care per PCP. This plan was discussed with Dr. Hernández. Please call us for any further questions or concerns. Dictated by MIGUEL ANGEL Hannon for Venu Hernández MD cc: Venu Hernández MD I have seen and examined the patient myself and I agree with the above plan of care. I have discussed the above with the patient and all questions were answered. Please call us with any further questions. PURNIMA
[2019-05-01] MEDS: LASIX IV SCH (18:34)
--- NOTE | 2019-05-01 19:47 | PROGRESS NOTE ---
DATE: 05/01/2019 SUBJECTIVE: She is feeling better today. She is still complaining of shortness of breath. Chest x-ray is about the same compared with yesterday. She is still having pulmonary edema, even though I gave her an extra dose of Lasix. I have stopped the p.o. Lasix, and I put her on IV Lasix twice a day today. I suspect this patient has CHF. I ordered an echocardiogram that has been already done, but I do not have the results yet. I will continue with the same management. OBJECTIVE: Vital Signs: Temperature 98.6 degrees, pulse 68, respiratory rate 15, blood pressure 147/62, oxygen saturation 94% on 2 L of nasal cannula. HEENT: Head normocephalic, no trauma, PERRLA. Neck: Supple. No JVD. No masses. Central trachea. Chest: Clear to auscultation. Some crepitus at the bases with mild rales. Left lower lobe rhonchi. Abdomen: Soft, nontender, nondistended. No hepatosplenomegaly. Extremities: No clubbing, no cyanosis. Neurological: The patient is awake, alert. She is oriented x3. No focal deficits. LABORATORY: WBC 12.6, hemoglobin 8.6, hematocrit 29.2, platelets 283,000. Sodium 139, potassium 3.3, chloride 101, bicarbonate 26, BUN 13, creatinine 0.9, glucose 94, calcium 9.2. ASSESSMENT AND PLAN: 1. Acute colitis/hematochezia. No evidence of colitis during the endoscopy. I will stop the Flagyl today. I will continue with the same management recommended by Gastroenterology Department, likely the bleeding was caused by the hemorrhoids. 2. Pneumonia, left lower lobe and lingula. Continue with ceftriaxone and azithromycin. 3. Fluid overload. I suspect this patient has congestive heart failure based on her symptoms. I ordered an echocardiogram that has been already done, but I do not have the results. Continue with Lasix twice a day. 4. Hypertension, stable. 5. Hyperlipidemia. Continue with statins. 6. Acute kidney injury on chronic kidney disease, resolved. 7. Generalized weakness and physical deconditioning. Physical therapy on board. I will follow their recommendations. 8. She is not on home O2. Pending echocardiogram results, I will continue diuresing this patient. cc: Jorge Daniels MD
--- NOTE | 2019-05-01 19:54 | ECHO REPORT ---
ORDER DATE: 05/01/2019 REQUESTING PHYSICIAN: Hospitalist. INDICATION: Chronic kidney disease. Abdominal pain. M-MODE MEASUREMENTS: Left ventricle end diastole: 4.3. Left ventricle end systole: 2.8. Posterior wall: 1.0. Interventricular septum: 1.0. Left atrium: 4.1. Aortic diameter: 2.7. SUMMARY OF 2-DIMENSIONAL IMAGIN. The left ventricular function is normal. Ejection fraction estimated at 65% to 70%. Optison was added to optimize visualization of the endocardium. I do not see wall motion abnormality. The right-sided chambers appear to be normal. 2. The aortic valve looks grossly normal. Color flow mapping unremarkable. 3. The mitral valve shows mild to moderate degree of regurgitation. 4. Pulse wave Doppler of mitral inflow is normal. 5. Tissue Doppler of septal and lateral mitral annulus averages 9 cm. There is no diastolic dysfunction. 6. Pulmonary venous flow appears to be normal. 7. The tricuspid valve shows mild to moderate degree of regurgitation. 8. The pulmonary systolic pressure in this case appears to be elevated, estimated at 80 to 85 mmHg. The pulmonic valve looks grossly normal. Color flow mapping unremarkable. 9. I do not see evidence of pericardial effusion, mass, and no thrombus. SUMMARY: The study shows 1. Normal left ventricular systolic function. 2. Mild degree of sclerosis of the aortic valve without stenosis. 3. Mild to moderate degree of mitral regurgitation with normal diastolic function. 4. Severe pulmonary hypertension estimated at 80 to 85 mmHg. 5. No pericardial effusion, mass, and no thrombus. 6. There is mild enlargement of the left atrium. Clinical correlation is recommended. cc: MD Jorge Ryan MD [facility]
[2019-05-01] MEDS: PRAVACHOL PO SCH (20:35)
[2019-05-01] MEDS: CENTRUM SILVER PO SCH (20:35)
[2019-05-01] MEDS: ROCEPHIN 1 GM in NS 50 ML IV SCH (20:35)
[2019-05-01] MEDS: ZITHROMAX 500 MG/NS 500 MG/250 ML IVPB IV SCH (21:16)
[2019-05-02] MEDS: SODIUM CHLORIDE 0.9% INJ SCH ×2 (05:32→23:31)
[2019-05-02] MEDS: LASIX IV SCH ×2 (05:32→18:56)
[2019-05-02] MEDS: PROTONIX IV SCH ×2 (05:32→23:30)
[2019-05-02 07:48] LABS: BASO# 0.05 X1000 (0.0-0.2); BASO% 0.5 % (0.0-0.8); EOS# 0.21 X1000 (0.0-0.7); EOS% 2.1 % (0.0-10.0); HEMATOCRIT 30.1 % (37.0-47.0); IMM GRAN# 0.06 X1000 (0.0-0.04); IMM GRAN% 0.6 % (0.0-0.5); LYMPH# 1.44 X1000 (1.2-3.4); LYMPH% 14.1 % (20.5-51.1); MCH 24.1 PG (27-31); MCHC 29.9 g/dL (33-37); MCV 80.5 FL (81-99); MONO# 1.56 X1000 (0.11-0.59); MONO% 15.2 % (1.7-9.3); MPV 11.4 FL (7.4-10.4); NEUT# 6.92 X1000 (1.4-6.5); NEUT% 67.5 % (42.2-75.2); PLT 316 X1000 (130-400); RBC 3.74 XMIL (4.2-5.4); RDW 14.1 % (11.5-14.5); WBC 10.24 X1000 (4.8-10.8)
[2019-05-02] MEDS: ANUSOL-HC SUPP PR SCH ×2 (08:08→21:54)
[2019-05-02] MEDS: PLAVIX PO SCH (08:08)
[2019-05-02] MEDS: ZOLOFT PO SCH (08:08)
[2019-05-02] MEDS: ANTIVERT PO PRN (08:08)
[2019-05-02] MEDS: COLACE PO SCH ×2 (08:08→21:53)
[2019-05-02] MEDS: PERIDEX MT SCH ×2 (08:08→21:54)
[2019-05-02 08:22] LABS: POTASSIUM 3.7 mmol/L (3.5-5.1)
--- NOTE | 2019-05-02 14:09 | PROGRESS NOTE ---
DATE: 05/02/2019 SUBJECTIVE: This patient is feeling better. She has severe pulmonary hypertension by echo and likely diastolic dysfunction. No evidence of colitis during the endoscopic procedure. I will remove some more fluid today with Lasix and hopefully I will discharge this patient tomorrow. Today, I believe is the last day with azithromycin. She is still having some shortness of breath, but feeling better. OBJECTIVE: Vital Signs: Temperature 98.6 degrees, pulse 83, respiratory rate 12, blood pressure 131/55, oxygen saturation 95% on 2 L of nasal cannula. HEENT: Head normocephalic, no trauma. PERRLA. Neck: Supple. No JVD. No masses. Central trachea. Chest: Clear to auscultation. Some crepitus at the bases with some rales. Left lower lobe rhonchi. Abdomen: Soft, nontender, nondistended. No hepatosplenomegaly. Extremities: 1+ lower extremity edema. No clubbing. No cyanosis. Neurological: Awake, alert, and oriented x3. No focal deficits. LABORATORY: WBC 10.2, hemoglobin 9, hematocrit 30.1, platelets 316,000. Sodium 142, potassium 3.7, chloride 102, bicarbonate 23, BUN 19, creatinine 1, glucose 97, calcium 10. ASSESSMENT AND PLAN: 1. Hematochezia, likely due to hemorrhoidal bleeding. No evidence of colitis during the colonoscopy. We will continue with same management. I have stopped the Flagyl already. She is not having any gastrointestinal symptoms at this moment. 2. Pneumonia, at the level of the left lower lobe and lingula. Continue with ceftriaxone and azithromycin. I believe this is the last day of azithromycin. 3. Fluid overload in a patient with severe pulmonary hypertension by echo. I will continue with Lasix twice a day today, but probably I will discharge this patient with Lasix once a day. 4. Hypertension, stable. 5. Hyperlipidemia, continue with statins. 6. Acute kidney injury on chronic kidney disease, resolved. 7. Generalized weakness and physical deconditioning. Physical therapy on board. We will follow the recommendations. 8. Hypoxemic respiratory failure due to fluid overload and pneumonia. She is not on home O2 and I will check tomorrow morning if she needs to go home with oxygen. This has been discussed with the daughter and the patient at the bedside. cc: Jorge Daniels MD
[2019-05-02] MEDS: DULCOLAX PR SCH (14:11)
--- NOTE | 2019-05-02 14:56 | GASTROENTEROLOGY PROGRESS NOTE ---
DATE: 05/02/2019 SUBJECTIVE: Ms. Urena is a 78-year-old female sitting in bed and having breakfast. Family at the bedside. The patient has denied any nausea, vomiting, abdominal pain, or any bleeding episodes. OBJECTIVE: Vital signs: Temperature 98.1, pulse is 80, respirations 16, blood pressure 127/57, oxygen saturation 94% on room air. The patient's weight is 141 pounds. BMI is 25.8 kg/m2. General: She is alert, oriented x3, and in no acute distress. HEENT: Pale conjunctivae. No icterus. PERRL. Neck: Supple. Lungs: Clear to auscultation in the anterior craig. Cardiovascular: Regular rate and rhythm. Abdomen: Soft, nontender, nondistended. Active bowel sounds heard in all 4 quadrants. Extremities: No clubbing. No cyanosis. Generalized edema in the lower extremities. Pedal pulses 1+ present bilaterally. Neurologic: The patient is alert, oriented x3. LABS: WBC 10.24, RBC 3.74, Hemoglobin 9.0, Hematocrit 30.1, Sodium 142, Potassium 3.7, chloride 102, CO2 23, anion gap 17, BUN 19, creatinine 1.0, glucose 97, calcium 10.0 IMPRESSIONS AND PLAN: 1. Hemorrhoidal bleeding 2. Diverticulosis. 5. Anemia. 6. Constipation. 7. Pneumonia PLAN: Ms. Urena is a 78-year-old female with a history of CVA, basal cell skin cancer and chronic kidney disease. GI is following her for rectal bleeding. We did a colonoscopy on 04/28/2019 and patient had some nonbleeding diverticulosis in the sigmoid colon, some small internal and external hemorrhoids. The patient's hemoglobin and hematocrit today is 9.0 and 30.1, it has been trending upwards. The patient has denied any bowel movements, she is on a bowel regimen, Dulcolax 10 mg p.r. daily and MiraLAX 17 grams p.o. twice a day. For her hemorrhoids, the patient is receiving Anusol hydrocortisone suppository cream 2.5% twice a day. The patient is on antibiotics, Rocephin and Zithromax. The patient's bleeding is under control. She has not had any further bleeding. The patient has been advised to have a high-fiber diet and continue her bowel regimen to avoid constipation. We will continue to monitor the patient and follow the plan of care per PCP. This plan was discussed with Dr. Adrian. Please call us with any further questions or concerns. Dictated by MIGUEL ANGEL Hannon for Devin Adrian MD Physician Attestation I have seen and examined the patient. I have discussed and reviewed the note by Tamika MICHELLE and agree with findings and plan as documented. No further hemorrhoidal bleeding. Continue supportive care. She reports some mild diffuse abdominal discomfort in setting of constipation. She was started on home miralax today. Anemia stable. She is being treated for pneumonia, which is improving. Will follow with you. MTDD
[2019-05-02] MEDS: ZITHROMAX 500 MG/NS 500 MG/250 ML IVPB IV SCH (21:53)
[2019-05-02] MEDS: PRAVACHOL PO SCH (21:53)
[2019-05-02] MEDS: CENTRUM SILVER PO SCH (21:53)
[2019-05-02] MEDS: ROCEPHIN 1 GM in NS 50 ML IV SCH (23:21)
[2019-05-03] MEDS: LASIX IV SCH (05:18)
[2019-05-03] MEDS: PROTONIX IV SCH (05:19)
[2019-05-03] MEDS: SODIUM CHLORIDE 0.9% INJ SCH (05:25)
[2019-05-03 07:26] LABS: CALCIUM 9.9 mg/dL (8.8-10.2); CREATININE 1.1 mg/dL (0.5-0.9); POTASSIUM 3.7 mmol/L (3.5-5.1)
--- NOTE | 2019-05-03 09:14 | EKG Report ---
Test Performed on : 05/03/2019 08:59:32 AM Test Reason : CP Blood Pressure : / mmHG Vent. Rate : 082 BPM Atrial Rate : 082 BPM P-R Int : 174 ms QRS Dur : 070 ms QT Int : 380 ms P-R-T Axes : 043 -06 017 degrees QTc Int : 443 ms Normal sinus rhythm. Nonspecific ST abnormality Abnormal ECG When compared with ECG of 05-MAR-2017 17:43, ST now depressed in Lateral leads Confirmed by West CASTILLO, Chase Fink ([id number]) on 05/03/2019 10:22:41 AM
--- NOTE | 2019-05-03 10:13 | Diag Imaging Result Doc PS360 ---
EXAM: CHEST-PORTABLE 05/03/2019 HISTORY: CP/SOB TECHNIQUE: AP portable upright at 0856 COMMENT: The inspiration is less optimal than on 05/01/2019, but the pulmonary edema which was present previously has improved considerably. There is a hiatal hernia. There is apparent pleural fluid on the left if not the right. IMPRESSION: Improved pulmonary edema. Electronically signed by Franky Perez 05/03/2019 10:11 AM
--- NOTE | 2019-05-03 10:48 | PROGRESS NOTE ---
DATE: 05/03/2019 SUBJECTIVE: This patient is complaining today of chest pain, pressure like across her chest, radiating to her jaw. I have requested an EKG, and I did not see any changes. I have requested also troponins, a chest x-ray that has been done but pending results, and also I consulted Cardiology Department to evaluate this patient. Vital signs are stable. OBJECTIVE: Vital Signs: Temperature 98.1 degrees, pulse 80, respiratory rate 17, blood pressure 143/59, oxygen saturation 98% on 2 liters of nasal cannula. HEENT: Head is normocephalic, no trauma. PERRLA. Neck: Supple. No JVD. No masses. Central trachea. Chest: Clear to auscultation, some crepitus at the bases. Left lower lobe, mild left lower lobe rhonchi. Abdomen: Soft, nontender, nondistended. No hepatosplenomegaly. Extremities: Trace lower extremity edema. No clubbing. No cyanosis. Neurological: The patient is awake, alert, she is oriented x3. No focal deficits. LABORATORY: Sodium 140, potassium 3.7, chloride 99, bicarbonate 28, BUN 24, creatinine 1.1, glucose 104, calcium 9.9. ASSESSMENT AND PLAN: 1. Chest pain. This is new for this patient. She is complaining of pressure-like chest pain across her chest, radiating to her jaw. She does not have any history of coronary artery disease, but she does have hypertension, hyperlipidemia, and chronic kidney disease. She is a female and a 78-year-old, so I requested an EKG, and I did not see any significant changes. Troponins and chest x-ray are pending at this moment. Cardiology Department has been consulted. 2. Pneumonia, left lower lobe and lingula. Continue with ceftriaxone. She actually completed treatment with azithromycin already, so I will stop it. 3. Fluid overload in a patient with severe pulmonary hypertension by echocardiogram. She has been getting Lasix twice a day. She seems to be euvolemic today, so I will switch it to her home dose of 40 daily starting tomorrow. 4. Hypertension, stable. 5. Hyperlipidemia, continue with statins. 6. Acute kidney injury on chronic kidney disease, resolved. This is her baseline. 7. Generalized weakness and physical deconditioning. Physical therapy on board. 8. Hypoxemic respiratory failure due to fluid overload and pneumonia. She is not on home O2. We will monitor for now. 9. Hematochezia, status post endoscopic exam. No signs of bleeding. No signs of colitis. Likely, the bleeding was coming from the hemorrhoids. cc: Jorge Daniels MD
[2019-05-03] MEDS: ZOLOFT PO SCH (12:04)
[2019-05-03] MEDS: PLAVIX PO SCH (14:26)
[2019-05-03] MEDS: COLACE PO SCH ×2 (14:26→20:56)
[2019-05-03] MEDS: PERIDEX MT SCH ×2 (14:27→20:56)
[2019-05-03] MEDS: ANUSOL-HC SUPP PR SCH ×3 (14:27→20:56)
--- NOTE | 2019-05-03 14:27 | GASTROENTEROLOGY PROGRESS NOTE ---
DATE: 05/03/2019 SUBJECTIVE: Ms. Urena is a 78-year-old female resting in bed, family at the bedside. The patient did mention that she had some chest pain today and had 2 bowel movements yesterday. OBJECTIVE: Vital Signs: Temperature 98 degrees, pulse is 83, respirations 17, blood pressure is 145/62, oxygen saturation is 96% 2 L nasal cannula. The patient's weight is 141 pounds. BMI is 25.8 kg/m2. General: She is alert, oriented x3, and in no acute distress. HEENT: Pale conjunctivae, no icterus. PERRL. Neck: Supple. Lungs: Clear to auscultation. Cardiovascular: Regular rate and rhythm. Abdomen: Soft, tender, nondistended. Active bowel sounds heard in all 4 quadrants. Extremities: No clubbing, no cyanosis, no edema. Pedal pulses 2+ present bilaterally. Neurologic: She is alert, oriented x3. LABORATORY DATA: From 05/02/2018: WBC 10.24, RBC 3.74, hemoglobin 9, hematocrit is 30.1, platelet count is 316,000. Sodium 140, potassium 3.7, chloride 99, carbon dioxide 28, anion gap 13, BUN 24, creatinine is 1.1, glucose is 104, calcium is 9.9. Creatine Kinase 29, Troponin T 372, and [id number] Peptide 3203. The patient's chest x-ray today showed improved pulmonary edema. IMPRESSION AND PLAN: Hemorrhoidal bleeding Diverticulosis Anemia Constipation Pneumonia Chest pain PLAN: Ms. Urena is a 78-year-old female with a history of CVA, basal cell skin cancer and chronic kidney disease. GI has been following her for a rectal bleeding. The patient has denied any further bleeding episodes. Her constipation has been improving. She did have 2 bowel movements yesterday. She is on a bowel regimen, Dulcolax 10 mg suppository daily and MiraLAX 17 g twice a day. The patient complained of mild abdominal tenderness on the left upper quadrant. The patient is on antibiotic Rocephin for her pneumonia. This plan was discussed with Dr. Adrian. Please call us for any further questions or concerns. Dictated by MIGUEL ANGEL Hannon for Devin Adrian MD Physician Attestation I have seen and examined the patient. I have discussed and reviewed the note by Tamika MICHELLE and agree with findings and plan as documented. Will sign off. Please call with questions. MTDD
[2019-05-03] MEDS: ANTIVERT PO PRN (14:30)
[2019-05-03] MEDS: DULCOLAX PR SCH (16:19)
--- NOTE | 2019-05-03 20:55 | CONSULTATION ---
DATE OF CONSULTATION: 05/03/2019 IMPRESSION: 1. Episode of chest discomfort this afternoon, suspicious for an episode of angina lasting perhaps 15 minutes. 2. Nonspecific elevation in troponin. 3. Recent gastrointestinal blood loss requiring transfusion. 4. Prior cerebrovascular accident with transient left-sided weakness. 5. Hypertension. 6. Chronic kidney disease. 7. Questionable history of previous deep venous thrombosis. 8. Severe pulmonary hypertension evident on echocardiography this admission, with normal left ventricular ejection fraction. RECOMMENDATIONS: 1. Initiate medical management for angina. 2. Consider resuming Plavix, but may need to hold off on this given recent gastrointestinal blood loss. 3. Lexiscan sestamibi study to risk stratify; however given patient's recent gastrointestinal blood loss, we will most likely be obligated to manage her medically. 4. Venous Doppler study. 5. Conservative cardiovascular management overall. HISTORY OF PRESENT ILLNESS: This 78-year-old, white female with a past history of hypertension, hyperlipidemia, chronic kidney disease., and previous cerebrovascular accident was admitted recently for further evaluation and management of GI blood loss and associated anemia. At the time of admission, she was on Plavix, but this was discontinued. She has had evaluation which disclosed evidence of hemorrhoidal bleeding and diverticulosis. She was transfused 1 unit of packed red cells, given the severity of her anemia. She was about to go home today, and while sitting up beside the bed, she developed substernal chest pressure which radiated up into her neck. The discomfort lasted about 15 minutes and then resolved. A troponin level was obtained and was mildly elevated. Cardiology was consulted. She has also had echocardiography this admission which was noteworthy for severe pulmonary hypertension with an estimated systolic PA pressure of 85 mmHg. Left ventricle ejection fraction is normal. She also relates a history of possible previous DVT as well as carotid atherosclerosis. PAST MEDICAL HISTORY: 1. Hypertension. 2. Hyperlipidemia. 3. Previous cerebrovascular accident with transient left-sided weakness which improved. 4. Questionable history of DVT. 5. Carotid atherosclerosis. 6. Basal cell skin cancer removed from her lip. 7. Degenerative disc of lower back and associated chronic back discomfort. 8. Anxiety/depression. 9. Question history of previous DVT in the past. PAST SURGICAL HISTORY: 1. Hysterectomy. 2. Left breast lumpectomy. 3. Unspecified bladder surgery. ALLERGIES: She is allergic or intolerant to codeine, penicillins, meloxicam, [place] and [place]. She also relates intolerance to aspirin, as this causes brief palpitations. MEDICATIONS PRIOR TO ADMISSION: As listed. SOCIAL HISTORY: She is . She lives in an apartment for disabled senior citizens. She is able to get around most of the time without an assistive device and lives independently. She does not smoke or use alcohol. FAMILY HISTORY: Negative for premature coronary disease. REVIEW OF SYSTEMS: Pulmonary: Negative beyond history of present illness. Gastrointestinal.: Noncontributory beyond history of present illness. Constitutional: Noncontributory beyond history of present illness. Remainder review of systems negative/noncontributory beyond history of present illness, with 14 total systems reviewed. PHYSICAL EXAMINATION: General: This is a very pleasant, elderly, white female in no distress on room air. Vital signs: Blood pressure 145/62, heart rate 83, oxygen saturation 96%. HEENT: Extraocular movements intact. Mucous membranes are moist. Neck: Supple. Soft right carotid bruit is noted. Chest: Clear to auscultation. Cardiac Exam: Reveals a regular rate and rhythm without appreciable murmur or gallop. Abdomen: Soft. Bowel sounds are normal. Extremities: Without edema. Neurologic: Reveals her to be alert and fully oriented. Speech is fluent. She moves all 4 extremities equally well. Skin: Warm and dry. Psychiatric: Reveals mood to be appropriate. LABORATORY DATA: Includes sodium of 140, potassium 3.7, chloride 99, carbon dioxide 28, BUN 24, creatinine 1.1. Glucose 104. Troponin T high sensitivity study: 410. Hematocrit 30.1 hemoglobin. 9.9, white blood cell count 10.24, platelet count 316. PERTINENT DATA: Twelve lead EKG demonstrates normal sinus rhythm and very mild nonspecific ST abnormality. Echocardiography report indicates normal left ventricular ejection fraction of 65% to 70 %. Mild to moderate mitral regurgitation demonstrated. Mild to moderate tricuspid regurgitation demonstrated with estimated systolic PA pressure of 80 to 85 mmHg, suggestive of severe pulmonary hypertension. cc: Ty Galloway MD
[2019-05-03] MEDS: CENTRUM SILVER PO SCH (20:56)
[2019-05-03] MEDS: ROCEPHIN 1 GM in NS 50 ML IV SCH (20:56)
[2019-05-03] MEDS: PRAVACHOL PO SCH (20:56)
[2019-05-04 06:47] LABS: BASO# 0.08 X1000 (0.0-0.2); BASO% 0.8 % (0.0-0.8); EOS# 0.25 X1000 (0.0-0.7); EOS% 2.6 % (0.0-10.0); HEMATOCRIT 31.7 % (37.0-47.0); HEMOGLOBIN 9.2 g/dL (12.0-16.0); IMM GRAN% 1.1 % (0.0-0.5); LYMPH# 1.94 X1000 (1.2-3.4); LYMPH% 20.5 % (20.5-51.1); MCH 23.6 PG (27-31); MCV 81.3 FL (81-99); MONO# 1.12 X1000 (0.11-0.59); MONO% 11.8 % (1.7-9.3); MPV 10.9 FL (7.4-10.4); NEUT# 5.98 X1000 (1.4-6.5); NEUT% 63.2 % (42.2-75.2); PLT 356 X1000 (130-400); RDW 14.3 % (11.5-14.5); WBC 9.47 X1000 (4.8-10.8)
[2019-05-04 07:28] LABS: AGAP 13; BUN 24 mg/dL (8-22); CALCIUM 9.5 mg/dL (8.8-10.2); CHLORIDE 103 mmol/L (98-107); COSMO 287; CREATININE 0.9 mg/dL (0.5-0.9); ESTIMATED GFR > 60; GLUCOSE 103 mg/dL (70-104); POTASSIUM 3.6 mmol/L (3.5-5.1); SODIUM 142 mmol/L (136-145); TCO2 26 mmol/L (25-35)
--- NOTE | 2019-05-04 07:40 | EKG Report ---
Test Performed on : 05/04/2019 06:49:33 AM Test Reason : chest pain Blood Pressure : / mmHG Vent. Rate : 084 BPM Atrial Rate : 084 BPM P-R Int : 182 ms QRS Dur : 070 ms QT Int : 382 ms P-R-T Axes : 057 004 017 degrees QTc Int : 451 ms Sinus rhythm. with fusion complexes and premature atrial complexes. Nonspecific ST abnormality Abnormal ECG When compared with ECG of 03-MAY-2019 08:59, fusion complexes are now present premature atrial complexes. are now present Confirmed by [place] CASTILLO, Chase Fink ([id number]) on 05/05/2019 7:01:38 PM
[2019-05-04] MEDS ORDERED: LEXISCAN ONE (08:39)
[2019-05-04] MEDS: PERIDEX MT SCH ×2 (10:58→21:55)
[2019-05-04] MEDS: ANUSOL-HC SUPP PR SCH ×2 (10:58→21:59)
[2019-05-04] MEDS: COLACE PO SCH ×2 (10:58→21:54)
[2019-05-04] MEDS: LASIX PO SCH (10:58)
[2019-05-04] MEDS: PLAVIX PO SCH (10:59)
[2019-05-04] MEDS: ZOLOFT PO SCH (10:59)
[2019-05-04] MEDS: DULCOLAX PR SCH (10:59)
--- NOTE | 2019-05-04 17:28 | Diag Imaging Result Document ---
PROCEDURE NAME: MYOCARDIAL PERF SCAN, STR/REST - 05/03/2019 Two-day rest/stress myocardial perfusion study. INDICATION: A 78-year-old female with chest pain, coronary heart disease suspected. DESCRIPTION: The patient came in to the rest lab on May 03 and received a rest injection of technetium 99 sestamibi 26.7 mCi. Multiple tomographic views of the cardiac structures were obtained at rest. Subsequently the patient underwent a Lexiscan infusion of 0.4 mg on May 04, and at peak infusion received an injection of technetium 99 sestamibi 26.5 mCi. Multiple tomographic views of the cardiac structures were obtained following completion of the exercise protocol. SUMMARY OF THE ELECTROCARDIOGRAPHIC PORTION OF THE STUDY: Resting ECG showed sinus rhythm, rate 82 beats per minute. Resting blood pressure 144/71. Resting ECG showed sinus rhythm with 1 PVC. No significant ischemic changes noted at rest. During the infusion of the pharmaceutical agent, the heart rate increased to 130 beats per minute. Blood pressure went up to 146/73. The patient reported no symptoms. No chest pain, shortness of breath or palpitations. The ECG showed no significant changes. Following the completion of the infusion, heart rate and blood pressure returned back to baseline. In summary, the electrocardiographic response to infusion of Lexiscan is deemed to be negative for ischemia. A nonspecific change was noted during the recorded phase that appeared to be an exaggeration of the baseline. SUMMARY OF THE MYOCARDIAL PERFUSION PORTION OF THE STUDY: Post-stress tomographic views of the left ventricle showed normal homogeneous distribution of radiotracer throughout the entire length of the myocardium. There is no convincing evidence of any post-stress defect. Rest images show normal perfusion. Polar plots reveal the same. There is no evidence of any inducible ischemia nor myocardial scar. Gated SPECT showed normal left ventricular systolic function. Ejection fraction is estimated at 65% at rest and 75% post stress. Using the alternative protocol, the resting ejection fraction is 72% and post stress 81%. Lung/heart ratio is normal at 0.36. The TID is normal at 0.88. SUMMARY: This study shows: 1. Normal electrocardiographic response to a Lexiscan infusion. 2. Normal post-stress myocardial perfusion scan. There is no scintigraphic evidence of pharmacologically induced myocardial ischemia. 3. Normal left ventricular systolic function with ejection fraction post stress 75% with normal ventricular volumes and no wall motion abnormality. This study represents low risk for ischemic events. cc: MD Tamika Ryan PA
--- NOTE | 2019-05-04 20:03 | PROGRESS NOTE ---
DATE: 05/04/2019 SUBJECTIVE: No chest pain today. She had a stress test done today, pending results. She is feeling better. OBJECTIVE: Vital Signs: Temperature 97.6 degrees, pulse 81, respiratory rate 20, blood pressure 146/51, oxygen saturation 95% on 2.5 L of nasal cannula. HEENT: Head normocephalic, no trauma. PERRLA. Neck: Supple. No JVD. No masses. Central trachea. Chest: Clear to auscultation. Some crepitus at the bases. Left lower lobe or a with some rhonchi. Abdomen: Soft, nontender, nondistended. No hepatosplenomegaly. Extremities: Trace lower extremity edema. No clubbing. No cyanosis. Neurological: The patient is awake, alert. She is oriented x3. No focal deficits. LABORATORY: WBC 9.4, hemoglobin 9.2, hematocrit 31.7, platelets 356,000. Sodium 142, potassium 3.6, chloride 103, bicarbonate 26, BUN 24, creatinine 0.9, glucose 103, calcium 9.5. ASSESSMENT AND PLAN: 1. Chest pain, she started complaining of chest pain yesterday. The chest pain resolved. It was pressure-like, so Cardiology Department was consulted. Troponins were slightly elevated. We did a stress test today, pending results. 2. Pneumonia, left lower lobe and lingula. Continue with ceftriaxone. She actually completed treatment with azithromycin already. 3. Fluid overload in a patient with severe pulmonary hypertension by echocardiogram. She has been getting Lasix twice a day and now she is getting it once a day. She seems to be doing fine. 4. Hypertension. Stable. 5. Hyperlipidemia. Continue with statins. 6. Acute kidney injury on chronic kidney disease, resolved. This is her baseline. 7. Generalized weakness and physical deconditioning. Physical therapy on board. 8. Hypoxemic respiratory failure due to fluid overload and pneumonia. She is not on home O2. We will monitor for now. Continue with oxygen supplementation. She seems to be stable. 9. Hematochezia status post endoscopic exam. No signs of bleeding. No signs of colitis. So likely the bleeding was coming from the hemorrhoids. This patient seems to be stable to go home, but I will wait for the results of the stress test, pending at this moment. She seems to be more stable. cc: Jorge Daniels MD
[2019-05-04] MEDS: CENTRUM SILVER PO SCH (21:54)
[2019-05-04] MEDS: ANTIVERT PO PRN (21:54)
[2019-05-04] MEDS: PRAVACHOL PO SCH (21:54)
[2019-05-04] MEDS: ROCEPHIN 1 GM in NS 50 ML IV SCH (21:54)
[2019-05-04] MEDS: TESSALON PO PRN (21:55)
--- NOTE | 2019-05-04 22:05 | CARDIOLOGY PROGRESS NOTE ---
DATE: 05/04/2019 SUBJECTIVE: Patient continues without chest discomfort or dyspnea on room air. OBJECTIVE: Vital Signs: Blood pressure 146/51, heart rate 81, oxygen saturation 95%. There is no significant jugular venous distention. Chest: Clear to auscultation bilaterally. Cardiac: Regular rate and rhythm without appreciable murmur, rub, or gallop. Extremities: Without edema. LABORATORY AND DIAGNOSTIC DATA: Includes a white blood cell count of 9.47, hematocrit 31.7, hemoglobin 9.2, platelet count 356,000. Sodium 142, potassium 3.6, chloride 103, carbon dioxide 26, BUN 24, creatinine 0.9. Lexiscan sestamibi study negative for evidence of inducible myocardial ischemia. Normal left ventricular ejection fraction indicated. IMPRESSION: 1. Episode of chest discomfort suspicious for angina with subsequent nonspecific abnormal troponin level. Lexiscan sestamibi study negative for evidence of inducible myocardial ischemia suggesting limited ischemic burden. Left ventricular ejection fraction normal. 2. Recent gastrointestinal blood loss requiring transfusion. 3. Previous cerebrovascular accident with transient left-sided weakness. 4. Hypertension. 5. Chronic kidney disease. 6. Severe pulmonary hypertension evident on echocardiography this admission, with normal left ventricular ejection fraction. RECOMMENDATIONS: 1. Continue medical management for angina/atherosclerotic coronary disease. 2. Consider resuming Plavix soon. 3. Reasonable for patient to be discharged in the next 24 hours from a cardiovascular standpoint. cc: Ty Galloway MD
[2019-05-05 08:10] VITALS: BP 131/54
[2019-05-05] MEDS: DULCOLAX PR SCH ×2 (10:53→10:57)
[2019-05-05] MEDS: COLACE PO SCH (10:53)
[2019-05-05] MEDS: ANUSOL-HC SUPP PR SCH (10:53)
[2019-05-05] MEDS: ZOLOFT PO SCH (10:54)
[2019-05-05] MEDS: LASIX PO SCH (10:54)
[2019-05-05] MEDS: PERIDEX MT SCH (10:54)
[2019-05-05] MEDS: PLAVIX PO SCH (10:54)
[2019-05-05] MEDS: ANTIVERT PO PRN (11:00)
--- NOTE | 2019-05-05 21:59 | Extremity Venous Study ---
PROCEDURE NAME: Venous U/S Bilateral Legs - 05/03/2019 REFERRING PHYSICIAN: VIVIAN Santos READING PHYSICIAN: Jean Pena MD SENIOR NETWORK SYSTEMS ENGINEER: Raj. INDICATION: Chest pain. FINDINGS: The deep and superficial veins of both lower extremities were imaged throughout their course. They are compressible, patent, and without thrombus. INTERPRETATION: No deep venous thrombosis or superficial deep venous thrombosis of either lower extremity. cc: MD Tamika Kenyon PA
--- NOTE | 2019-05-06 22:17 | DISCHARGE SUMMARY ---
ADMISSION DATE: 04/26/2019 DISCHARGE DATE: 05/05/2019 DISCHARGE DIAGNOSES: 1. Chest pain, acute coronary syndrome has been ruled out. 2. Pneumonia, left lower lobe and lingula. 3. Fluid overload in a patient with severe pulmonary hypertension by echocardiogram. 4. Hypertension. 5. Hyperlipidemia. 6. Acute kidney injury on chronic kidney disease, resolved. 7. Hematochezia, status post endoscopic exam. 8. Hypoxemic respiratory failure due to fluid overload and pneumonia. HOSPITAL COURSE: A 78-year-old female presented to the emergency department on 04/26/2019 complaining with abdominal pain that began earlier in the morning on 04/26/2019. She reported that it was in the left lower quadrant and did radiate to the mid lower quadrant, she states that the pain was crampy in nature, at home, nothing would relieve it or make it worse. She denied any nausea, vomiting, and diarrhea, though states that she has been constipated. She was attempted to have a bowel movement 3 times in the morning but was not able to do so, then she had 1 and saw bright red blood in the toilet. She denies fever, aches, body aches or chills. She denied any past or present history or having diverticulitis or colitis. She reported occasional dizziness but she takes meclizine as needed, this is chronic. She also has some dry cough that, apparently, was not new. She is complaining of chronic swelling on the bilateral extremities. She denies any dysuria or urinary frequency. In the emergency department, we found out that this patient's leukocyte count was 31,000, the hemoglobin 9.5, hematocrit 31.6 and acute kidney injury on chronic kidney disease. She was admitted and abdominal pelvic CT scan was done that showed the possibility of colitis, constipation, colonic diverticulosis, hysterectomy, hiatal hernia and atherosclerosis. Gastroenterology was consulted, they did an endoscopy that showed mild nonbleeding diverticulosis in the sigmoid colon, small internal hemorrhoids, external hemorrhoids. Hemorrhoids are likely the source of the rectal bleeding. We also find this patient has lingular and left lower lobe pneumonia and severe pulmonary hypertension by echocardiogram. She also has some fluid overload, so I started this patient on Lasix twice a day and she was she was getting better as well with antibiotics. A couple days ago, she started having chest pain in the middle of the chest radiating to the neck, so Cardiology Department was consulted. The troponins were actually slightly elevated so they did a stress test that basically did not show any acute problem, and they recommended to discharge this patient home. Today this patient is doing much better, she will be discharged home with oxygen. At the moment of discharge, this patient was in a stable medical condition, tolerating p.o. and ambulating. Her daughter was at the bedside. OBJECTIVE: Vital Signs: Temperature 98.1 degrees, pulse 87, respiratory rate 18, blood pressure 131/54 oxygen saturation 97% on 3 L of nasal cannula. HEENT: Head normocephalic, no trauma. PERRLA. Neck: Supple. No JVD. No masses. Central trachea. Chest: Clear to auscultation. Some crepitus at the bases. Left lower lobe with some rhonchi. Abdomen: Soft, nontender, nondistended. No hepatosplenomegaly. Extremities: Trace lower extremity edema. No clubbing. No cyanosis. Neurological: The patient is awake, alert. She is oriented x3. No focal deficits. LABORATORY: Yesterday, WBC 9.4, hemoglobin 9.2, hematocrit 31.7, platelets 356,000. Sodium 142, potassium 3.6, chloride 103, bicarbonate 26, BUN 24, creatinine 0.9. Glucose 103, calcium 9.5. DISCHARGE MEDICATIONS: 1. Amlodipine 5 mg p.o. daily. 2. Benazepril 40 mg p.o. daily. 3. Tessalon 100 mg p.o. t.i.d. as needed. 4. Dulcolax 10 mg per rectal daily as needed for constipation. 5. Cefdinir 300 mg p.o. daily. 6. Plavix 75 mg p.o. daily. 7. Flexeril 10 mg p.o. at bedtime. 8. Colace 100 mg p.o. b.i.d. 9. Lasix 40 mg p.o. daily. 10. Anusol suppository 35 mg per rectal b.i.d. to complete 14 days. 11. Lansoprazole 30 mg p.o. daily. 12. Meclizine 12.5 mg p.o. as needed. 13. Multivitamins 1 capsule p.o. daily. 14. MiraLAX 17 g p.o. b.i.d. as needed. 15. Potassium chloride ER 1 capsule p.o. daily. 16. Pravastatin 10 mg p.o. at bedtime. 17. Sertraline 50 mg p.o. daily. 18. Sucralfate 1 g p.o. b.i.d. 19. Tramadol 50 mg p.o. as needed for pain. TIME SPENT: Discharging this patient: 40 minutes. cc: Joreg Daniels MD
== END 2019-05-05 13:31 | disposition home health service (06) | DRG 393 ==
LOC: SUPCPDRO → ED 07:26 → SUATTDRO 19:59 → 4N 19:59
PROVIDERS: ATTEND Internal Medicine